=== PATIENT | female | born 1970 | race Caucasian/White ===

== ENCOUNTER 2016-07-14 12:32 | Emergency (ER) | payer OTHER ==
--- NOTE | 2016-07-14 12:39 | PDOC ---
History of Present Illness - General Chief Complaint: Injury Stated Complaint: RIGHT WRIST PAIN Time Seen by Provider: 07/14/16 12:34 History Source: Patient, Old Records Exam Limitations: No Limitations - History of Present Illness Initial Comments: 07/14/16 12:39 46-year-old right-hand dominant female with history of hypothyroid disease works as a tech in the emergency department and hurt her right wrist while at work today. The patient states that while she was complaining to retrieve a patient from a the street she was pushing a stretcher and felt a slight pain when she rounded the corner. There was no direct, to the area. The patient felt the pain immediately after the event and experiences pain with movement of her wrist. The patient is unable to characterize the pain but says that it is exacerbated with movement of the wrist. Past History - Past Medical History Allergies/Adverse Reactions: Allergies Allergy/AdvReac Type Severity Reaction Status Date / Time pantoprazole sodium AdvReac Mild Swelling Verified 07/14/16 12:34 [From Protonix] Home Medications: Ambulatory Orders Levothyroxine [Synthroid -] 50 mcg PO DAILY 07/14/16 Asthma: No Diabetes: No HTN: No - Immunization History Immunization Up to Date: Yes - Psycho/Social/Smoking Cessation Hx Anxiety: No Suicidal Ideation: No Smoking Status: No Smoking History: Never smoked Number of Cigarettes Smoked Daily: 0 Hx Alcohol Use: Yes Drug/Substance Use Hx: No Substance Use Type: None Review of Systems - Review of Systems Able to Perform ROS?: Yes Is the patient limited Bur[place]ian proficient: No Constitutional: No: Symptoms Reported HEENTM: No: Symptoms Reported Respiratory: No: Symptoms reported Cardiac (ROS): No: Symptoms Reported ABD/GI: No: Symptoms Reported : No: Symptoms Reported Musculoskeletal: Yes: See HPI Integumentary: No: Symptoms Reported Neurological: No: Symptoms reported *Physical Exam - Physical Exam Comments: 07/14/16 12:41 GENERAL: Well developed, well nourished. Awake and alert. No acute distress. HEENT: Normocephalic, atraumatic. PERRLA, EOMI. No conjunctival pallor. Sclera are non- icteric. Moist mucous membranes. Oropharynx is clear. MUSCULOSKELETAL Normal range of motion at all joints. No bony deformities or tenderness. No CVA tenderness. EXTREMITIES: Right hand and wrist: there is tenderness to palpation of the radial aspect of the wrist. There is full ROM of the wrist joint. There is no STS or ecchymosis. Sensory and motor exams are intact. The radial pulse is palpable and is +2. SKIN: Warm and dry. Normal capillary refill. No rashes. No jaundice. NEUROLOGICAL: Alert, awake, appropriate. Cranial nerves 2-12 intact. Grossly non-focal exam. PSYCHIATRIC: Cooperative. Good eye contact. Appropriate mood and affect. Medical Decision Making - Medical Decision Making 07/14/16 12:43 46-year-old female who is right-hand dominant presents the emergency department with right wrist pain after moving a heavy stretcher while at work today sustaining a sprain injury. Plan: 1. Vidal wrap 2. NSAIDs as needed for pain 3. Ice to the affected area 4. Activity as tolerated 5. Follow-up with PCP 6. Observe and reevaluate *DC/Admit/Observation/Transfer Diagnosis at time of Disposition: Right wrist sprain - Discharge Dispostion Disposition: HOME Condition at time of disposition: Stable Admit: No - Referrals Referrals: Lyn Jhaveri MD [Primary Care Provider] - - Patient Instructions Additional Instructions: You have sustained a sprain to your right wrist. Please use an VIDAL wrap for support of the joint. Apply ice to the joint every 20 minutes for the next 24 hours. You may take tylenol or motrin as needed for pain. Follow-up with you rPCP as needed. Return to the ED if your symptoms persist, worsen or new symptoms arise.
[2016-07-14 12:48] VITALS: BP 122/73; PULSE 55; TEMP 97.9; BMI 58.1
[2016-07-14] MEDS ORDERED: IBUPROFEN 400 MG TABLET (FP) PO ONE ×2 (12:52→12:53)
== END 2016-07-14 12:58 | disposition home or self-care (01) ==
LOC: FER 12:32
DX: M25.531 Pain in right wrist (principal); S63.501A Unspecified sprain of right wrist, initial encounter; X58.XXXA Exposure to other specified factors, initial encounter; Y93.89 Activity, other specified; Y92.232 Corridor of hospital as the place of occurrence of the external cause; Y99.0 Civilian activity done for income or pay; E03.9 Hypothyroidism, unspecified
CPT/HCPCS: 99282-25

== ENCOUNTER 2017-01-03 12:25 | Emergency (ER) | payer OTHER ==
[2017-01-03 12:33] VITALS: BP 127/80; PULSE 62; TEMP 98.4; BMI 28.3
[2017-01-03] MEDS ORDERED: KETOROLAC TROMETHAMINE 30 MG/1 ML VIAL ONE (12:33)
[2017-01-03] MEDS ORDERED: KETOROLAC TROMETHAMINE 30 MG/1 ML VIAL IVPUSH ONE (12:41)
[2017-01-03] MEDS ORDERED: METOCLOPRAMIDE HCL INJECTION 10 MG/2 ML VIAL IVPB ONE (12:41)
[2017-01-03] MEDS ORDERED: SODIUM CHLORIDE 0.9% 1000 ML INFUS.BAG IV ONE (12:41)
--- NOTE | 2017-01-03 12:48 | PDOC ---
History of Present Illness - General Chief Complaint: Headache Stated Complaint: HEADACHE Time Seen by Provider: 01/03/17 12:37 - History of Present Illness Initial Comments: 01/03/17 13:00 Patient is a 46 year old female with a history of Hypothyroidism who presents with a complaint of headache. She reports that yesterday, she was working and did not get to eat much throughout the day. She states that she drank wine which she normal doesn't do yesterday evening and woke up extremely nauseated and a pounding headache. She states that she vomited after attempting to eat and her headache has been getting progressively worse prompting her visit to the ED today. The patient's is present with her and states that she fell back while sitting in a chair yesterday evening and hit her head on a wall which the patient does not recall. She denies any fevers, chills, chest pain, SOB, abdominal pain, or changes with bowel movements or urination. Past History - Past Medical History Allergies/Adverse Reactions: Allergies Allergy/AdvReac Type Severity Reaction Status Date / Time pantoprazole sodium AdvReac Mild Swelling Verified 01/03/17 12:28 [From Protonix] Home Medications: Ambulatory Orders Levothyroxine [Synthroid -] 50 mcg PO DAILY 07/14/16 Ibuprofen [Motrin -] 600 mg PO TID PRN #60 tablet 01/03/17 Ondansetron [Ondansetron Odt] 8 mg PO TID PRN #15 tab.rapdis 01/03/17 Asthma: No Diabetes: No GI Disorders: Yes (H/O UPPER GI BLEED) HTN: No Thyroid Disease: Yes - Immunization History Immunization Up to Date: Yes - Psycho/Social/Smoking Cessation Hx Anxiety: No Suicidal Ideation: No Smoking Status: No Smoking History: Never smoked Number of Cigarettes Smoked Daily: 0 Information on smoking cessation initiated: No Hx Alcohol Use: Yes Drug/Substance Use Hx: No Substance Use Type: None Review of Systems - Review of Systems Constitutional: No: Chills, Fever HEENTM: No: Blurred Vision, Tearing, Recent change in vision Respiratory: No: Cough, Shortness of Breath Cardiac (ROS): No: Chest Pain, Palpitations ABD/GI: Yes: Nausea, Poor Fluid Intake, Vomiting. No: Constipated, Diarrhea : No: Dysuria Integumentary: No: Rash Neurological: Yes: Headache. No: Numbness, Tingling, Weakness *Physical Exam - Vital Signs Last Vital Signs Temp Pulse Resp BP Pulse Ox 98.4 F 62 18 127/80 100 01/03/17 12:25 01/03/17 12:25 01/03/17 12:25 01/03/17 12:25 01/03/17 12:25 - Physical Exam Comments: 01/03/17 13:14 General Appearance: Nourished. No Apparent Distress HEENT: EOMI, BROOKE. No Photophobia, Pharyngeal Erythema, Tonsillar Exudate, Tonsillar Erythema Respiratory/Chest: Lungs Clear, Normal Breath Sounds. No Crackles, Rales, Rhonchi, Wheezing Cardiovascular: Regular Rhythm, Regular Rate. No Murmur, Gallop/S3, Gallop/S4 Gastrointestinal/Abdominal: Normal Bowel Sounds, Soft. No Guarding, Rebound, Tenderness Extremity: Normal Capillary Refill Integumentary: Normal Color, Dry, Warm Neurologic: bottom turning lathe tender II-XII NML intact, Fully Oriented, Alert, Normal Mood/Affect, Normal Response, Motor Strength 10/02 ED Treatment Course - LABORATORY CBC & Chemistry Diagram: 01/03/17 12:56 01/03/17 12:56 - Medications Given in the ED: ED Medications Discontinued Medications Generic Name Dose Route Start Last Admin Trade Name Geraldine PRN Reason Stop Dose Admin Ketorolac Tromethamine 30 mg 01/03/17 12:41 01/03/17 12:40 Toradol Injection - IVPUSH 01/03/17 12:42 30 mg ONCE ONE Administration Metoclopramide HCl 10 mg 01/03/17 12:41 01/03/17 12:45 Reglan Injection - IVPB 01/03/17 12:42 10 mg ONCE ONE Administration Sodium Chloride 1,000 ml 01/03/17 12:41 01/03/17 12:40 Normal Saline - IV 01/03/17 12:42 1,000 ml ONCE ONE Administration Medical Decision Making - Medical Decision Making 01/03/17 13:15 Patient is a 46 year old female who presents with nausea, vomiting and headache. Differential includes but is not limited to: Dehydration, Migraine, Metabolic abnormality, Intracranial bleed. Given her history of alcohol consumption as well as nausea, it is likely her headache is due to dehydration. We will give the patient a 1L fluid bolus and reglan to treat her nausea and reassess. Given her history and description of mild head trauma, intracranial bleed is on the differential, however less likely given the mechanism and her physical exam. If the patient has continued symptoms despite treatment we will consider a head CT. We will also send a cbc, and cmp to evaluate for any metabolic component to her symptoms. 01/03/17 19:33 Patient improved with treatment. Lab work up is negative. We discussed the results with the patient and feel comfortable discharging the patient home. The patient is agreeable with the plan. *DC/Admit/Observation/Transfer Diagnosis at time of Disposition: Migraine - Discharge Dispostion Disposition: HOME Condition at time of disposition: Improved - Prescriptions Prescriptions: Ibuprofen [Motrin -] 600 mg PO TID PRN #60 tablet PRN Reason: Pain Ondansetron [Ondansetron Odt] 8 mg PO TID PRN #15 tab.rapdis PRN Reason: Nausea - Referrals Referrals: Lyn Jhaveri MD [Primary Care Provider] - - Patient Instructions Printed Discharge Instructions: Migraine Headaches (Alternative Therapy), Migraine -- Adult Additional Instructions: you can take ibuprofen 600 mg every 8 hours as needed for pain. take with food. return for any weakness, nausea or vomiting or any concerns. you should drink plenty of fluids. follow up with your regular doctor as needed., call to schedule. - Attestations Physician Attestion: 01/03/17 19:34 I, Dr. Eugene Oro, attest that this document has been prepared under my direction and personally reviewed by me in its entirety. I further attest, that it accurately reflects all work, treatment, procedures and medical decision -making performed by me.
[2017-01-03 13:07] LABS: BASOPHIL 1.2 % (0-2.0); EOSINOPHIL 1.4 % (0-4.5); MCHC 33.6 g/dl (32.0-36.0); MEAN CELL VOLUME 89.3 fl (80-96); MEAN PLT VOLUME 7.4 fl (7.5-11.1); NEUTROPHILS 78.9 % (42.8-82.8); PLATELET COUNT 341 K/MM3 (134-434); RDW 12.7 % (11.6-15.6); WHITE BLOOD COUNT 7.7 K/mm3 (4.0-10.8)
[2017-01-03 13:20] LABS: ALBUMIN 4.3 g/dl (3.5-5.0); ALK PHOS 84 U/L (32-92); ANION GAP 9 (8-16); BILIRUBIN,TOTAL 0.8 mg/dl (0.2-1.0); CALCIUM 9.2 mg/dl (8.4-10.2); CO2 25 mmol/L (22-28); CREATININE 0.8 mg/dl (0.6-1.3); GLUCOSE,RANDOM 109 mg/dl (74-106); SGOT/AST 49 U/L (10-42); SGPT/ALT 41 U/L (10-40); TOT PROT 7.2 g/dl (6.4-8.3)
--- NOTE | 2017-01-03 13:28 | PDOC ---
Attending Attestation - Resident Resident Name: Eugene Oro - ED Attending Attestation I have performed the following: I have examined & evaluated the patient, The case was reviewed & discussed with the resident, I agree w/resident's findings & plan, Exceptions are as noted - HPI HPI: 01/03/17 13:24 46 yo F with h/o hypothyroid, prior migraines, here today with headache and nausea. pt states was drinking wine night prior, did have fall from a chair, when tried to sit down, chair fell backwards. pt states kinsey is similar to prior kinsey. no f/c no other trauma. did not take any medications prior to arrival. no focal weakness. no confusion. no neck or back pain. - Physicial Exam PE: 01/03/17 13:27 awake alert NAD. neck no cervical spine ttp, no head trauma no scalp ttp. no eccymosis or hematoma. lungs clear bilaterally. heart RRR no mrg. abd soft NT ND. nuero GCs 15, 5/5 muscle strength throught CN II - XII intact. skin warm and dry no rash. - Medical Decision Making 01/03/17 13:28 46 yo F with headache. likley due to dehydration, ro anemia, electrlyte disturbance. ivf, reglan and pain control. reassess. 01/03/17 13:58 pt states feeling much better after two liters, will dc to home. labs reviewed and normal.
[2017-01-03] MEDS ORDERED: ACETAMINOPHEN 325 MG TABLET (FP) PO ONE (13:29)
[2017-01-03] MEDS ORDERED: ACETAMINOPHEN 325 MG TABLET (FP) ONE ×2 (13:29→13:30)
[2017-01-03] MEDS ORDERED: SODIUM CHLORIDE 0.9% 500 ML INFUS.BAG IV ONE (13:30)
== END 2017-01-03 14:00 | disposition home or self-care (01) ==
LOC: FER 12:25
PROC: 3E0333Z Introduction of Anti-inflammatory into Peripheral Vein, Percutaneous Approach (ICD-10-PCS; principal; 2017-01-03)
PROC: 3E033GC Introduction of Other Therapeutic Substance into Peripheral Vein, Percutaneous Approach (ICD-10-PCS; 2017-01-03)
PROC: 3E0337Z Introduction of Electrolytic and Water Balance Substance into Peripheral Vein, Percutaneous Approach (ICD-10-PCS; 2017-01-03)
DX: G43.909 Migraine, unspecified, not intractable, without status migrainosus (principal); E03.9 Hypothyroidism, unspecified
CPT/HCPCS: 36415; 80053; 85025; 99284-25

== ENCOUNTER 2017-02-03 12:35 | Emergency (ER) | payer OTHER ==
[2017-02-03 12:42] VITALS: BP 125/87; PULSE 58; TEMP 98.1; BMI 28.3
[2017-02-03 12:52] LABS: URINE APPEARANCE Clear; URINE BILIRUBIN Negative (NEGATIVE); URINE GLUCOSE (UA) Negative (NEGATIVE); URINE KETONE Negative (NEGATIVE); URINE NITRITE Negative (NEGATIVE); URINE PROTEIN Trace (NEGATIVE); URINE UROBILINOGEN 0.2 (0.2-1.0)
[2017-02-03 12:53] LABS: URINE BLOOD 3+ (NEGATIVE); URINE COLOR YELLOW; URINE LEUK ESTERASE 2+ (NEGATIVE)
[2017-02-03 13:08] LABS: URINE BACTERIA MODERATE /hpf (NEGATIVE); URINE HYALINE CAST 0-3 /lpf
[2017-02-03] MEDS ORDERED: SODIUM CHLORIDE 1,000 ML IV ONE (13:13)
[2017-02-03] MEDS ORDERED: PHENAZOPYRIDINE HCL 100 MG TABLET (FP) PO ONE (13:13)
[2017-02-03] MEDS ORDERED: LEVOFLOXACIN 750 MG IVPB 150 ML IVPB ONE ×2 (13:13→13:15)
[2017-02-03 13:15] LABS: BASOPHIL 0.6 % (0-2.0); EOSINOPHIL 2.9 % (0-4.5); MCH 29.9 pg (25.7-33.7); MCHC 33.9 g/dl (32.0-36.0); MEAN PLT VOLUME 6.9 fl (7.5-11.1); NEUTROPHILS 76.4 % (42.8-82.8); PLATELET COUNT 332 K/MM3 (134-434); RDW 12.2 % (11.6-15.6); WHITE BLOOD COUNT 9.6 K/mm3 (4.0-10.8)
[2017-02-03] MEDS ORDERED: PHENAZOPYRIDINE HCL 100 MG TABLET (FP) ONE (13:15)
--- NOTE | 2017-02-03 13:28 | PDOC ---
History of Present Illness - General Chief Complaint: Urinary Problem Stated Complaint: urinary s/s Time Seen by Provider: 02/03/17 12:44 History Source: Patient Exam Limitations: No Limitations - History of Present Illness Travel History: No Initial Comments: 02/03/17 13:11 47y F hx of hypothyroidism presents with abdominal pain. pt was dx with clinical uti approx 10 days ago, completed a course of kelfex. pt states her dysuria had improved after day 2 of abx, but last (Approx 6 days ago), the sypmtoms started again and she started to have b/l flank pain and discomfort starting approx 2 days ago. pt endorses mild nausea, denies any fever /chills Past History - Past Medical History Allergies/Adverse Reactions: Allergies Allergy/AdvReac Type Severity Reaction Status Date / Time pantoprazole sodium AdvReac Mild Swelling Verified 02/03/17 12:36 [From Protonix] Home Medications: Ambulatory Orders Levothyroxine [Synthroid -] 50 mcg PO DAILY 07/14/16 Levofloxacin [Levaquin] 750 mg PO DAILY #6 tab 02/03/17 Phenazopyridine HCl [Pyridium] 100 mg PO BID #2 tablet 02/03/17 Asthma: No Diabetes: No GI Disorders: Yes (H/O UPPER GI BLEED) HTN: No Thyroid Disease: Yes - Immunization History Immunization Up to Date: Yes - Psycho/Social/Smoking Cessation Hx Anxiety: No Suicidal Ideation: No Smoking Status: No Smoking History: Never smoked Number of Cigarettes Smoked Daily: 0 Hx Alcohol Use: No Drug/Substance Use Hx: No Substance Use Type: None Review of Systems - Review of Systems Able to Perform ROS?: Yes Comments:: Constitutional - no reported Fever, Chills, HEENT: no reported vision changes, sore throat Respiratory: no reported cough, sob, hemoptysis Cardiac: no reported chest pain, palpitations, light headedness, leg swelling Abd/GI: +abd pain, nausea, flank pain no reported vomiting, blood per rectum, melena, diarrhea : no reported dysuria, frequency, discharge Musculskelatal - no reported back pain, joint swelling skin - no reported bruising, erythema, rash neurological: no reported headache, numbness, focal weakness, tingling, ataxia, hematologic: no reported anemia, easy bruising, easy bleeding *Physical Exam - Vital Signs Last Vital Signs Temp Pulse Resp BP Pulse Ox 98.1 F 58 L 14 125/87 100 02/03/17 12:36 02/03/17 12:36 02/03/17 12:36 02/03/17 12:36 02/03/17 12:36 - Physical Exam Comments: GENERAL: The patient is awake, alert, and fully oriented, Nontoxic - in no acute distress. HEAD: Normocephalic, atraumatic. EYES: extraocular movements intact, sclera anicteric, conjunctiva clear. ENT: Normal voice, Moist mucous membranes. NECK: Normal range of motion, supple LUNGS: Breath sounds equal, clear to auscultation bilaterally. No wheezes, no rhonchi, no rales. HEART: Regular rate and rhythm, normal S1 and S2 without murmur, rub or gallop. ABDOMEN: R cva tenderness, no rebound/guarding, no focal abdominal tenderness EXTREMITIES: Normal range of motion, no edema. No clubbing or cyanosis. No cords, erythema, or tenderness. NEUROLOGICAL: No facial assymetry, Normal speech, moving all 4 extremities spontaneously and symmetrically PSYCH: Normal mood, normal affect. SKIN: Warm, Dry, normal turgor, ED Treatment Course - LABORATORY CBC & Chemistry Diagram: 02/03/17 13:09 02/03/17 13:11 - ADDITIONAL ORDERS Additional order review: Laboratory Results 02/03/17 12:41 Urine Color Yellow Urine Appearance Clear Urine pH 7.0 Ur Specific Anderson 1.010 Urine Protein Trace Urine Glucose (UA) Negative Urine Ketones Negative Urine Blood 3+ H Urine Nitrite Negative Urine Bilirubin Negative Urine Urobilinogen 0.2 Ur Leukocyte Esterase 2+ H Urine RBC 5-10 Urine WBC 5-10 Ur Epithelial Cells Few Urine Bacteria Moderate Hyaline Casts 0-3 Medical Decision Making - Medical Decision Making 02/03/17 13:44 suspect UTI and possible pyelo labs reviewed pt given fluids/levaquin/pyridium no leukocytosis and cmp wnl ua c/w UTI pt still with intermitten tpain - will obtain CT to r/o kidney stone w/ UTI will give pt toradol 02/03/17 14:[address] noted for thickening of bladder wall no stones noted cw cystitis, possible early pyelo will treat pt with levaquin due to +cva tenderness will have pt fu with PMD will give short course of pyridium I discussed the physical exam findings, ancillary test results and final diagnoses with the patient. I answered all of the patient's questions. The patient was satisfied with the care received and felt comfortable with the discharge plan and treatment plan. The patient will call their primary care physician within 24 hours to arrange follow-up and will return to the Emergency Department with any new, persistent or worsening symptoms. *DC/Admit/Observation/Transfer Diagnosis at time of Disposition: Cystitis - Discharge Dispostion Disposition: HOME Condition at time of disposition: Improved Admit: No - Prescriptions Prescriptions: Levofloxacin [Levaquin] 750 mg PO DAILY #6 tab Phenazopyridine HCl [Pyridium] 100 mg PO BID #2 tablet - Referrals Referrals: Lyn Jhaveri MD [Staff Physician] - - Patient Instructions Printed Discharge Instructions: DI for Acute Cystitis Additional Instructions: Return to the emergency department immediately with ANY new, persistent or worsening symptoms including worsening abdominal pain, fevers, inability to tolerate oral intake, chest pain, shortness of breath or any other concerns. The pyridum may turn your urine orange,which is normal. Your sypmtoms should improve within about 2 days, if your sypmtoms are still persistent return to the Emergency Department or follow up with Dr. Humphries. You MUST call and follow up with your doctor in 2-3 days. Your emergency department visit is not complete without a followup with your doctor for reevaluation. Please make sure your doctor reviews the results of your emergency evaluation. Print Language: AMERICAN - Post Discharge Activity Work/School Note: Back to Work
[2017-02-03 13:33] LABS: ALK PHOS 100 U/L (32-92); ANION GAP 6 (8-16); BILIRUBIN,TOTAL 0.4 mg/dl (0.2-1.0); CALCIUM 8.9 mg/dl (8.4-10.2); CO2 27 mmol/L (22-28); CREATININE 0.8 mg/dl (0.6-1.3); GLUCOSE,RANDOM 104 mg/dl (74-106); SGOT/AST 34 U/L (10-42); SGPT/ALT 31 U/L (10-40); TOT PROT 7.2 g/dl (6.4-8.3)
[2017-02-03] MEDS ORDERED: KETOROLAC TROMETHAMINE 30 MG/1 ML VIAL ONE (13:44)
[2017-02-03] MEDS ORDERED: KETOROLAC TROMETHAMINE 30 MG/1 ML VIAL IVPUSH ONE (13:44)
== END 2017-02-03 14:56 | disposition home or self-care (01) ==
LOC: FER 12:35
PROC: 3E0333Z Introduction of Anti-inflammatory into Peripheral Vein, Percutaneous Approach (ICD-10-PCS; principal; 2017-02-03)
PROC: 3E03329 Introduction of Other Anti-infective into Peripheral Vein, Percutaneous Approach (ICD-10-PCS; 2017-02-03)
PROC: 3E0337Z Introduction of Electrolytic and Water Balance Substance into Peripheral Vein, Percutaneous Approach (ICD-10-PCS; 2017-02-03)
DX: N30.90 Cystitis, unspecified without hematuria (principal)
CPT/HCPCS: 36415; 74176; 80053; 81003; 81015; 85025; 87086; 87186; 99283-25

== ENCOUNTER 2019-07-11 14:57 | Emergency (ER) | payer OTHER ==
--- NOTE | 2019-07-11 15:17 | PDOC ---
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 no fall or trauma. has been taking tylenol/ibuprofen appropriately dosed, last dose of ibuprofen 600mg IRRIGATOR HEAD without effect. Review of Systems Constitutional: no fevers or chills. Abdomen: no abdominal pain Genitorurinary: no urinary retention or incontinence, no dysuria, urgency or frequency. no hematuria MUSCULOSKELETAL: No joint pain and swelling. No muscle pain/arthralgias. Back: +back pain SKIN: no redness or skin changes, no discharge, no rash. No wounds. Hematologic: no easy bruising/bleeding. NEUROLOGIC: No weakness, numbness or tingling. Allergic/Immunologic: no allergies All other systems reviewed and negative, or as documented in HPI. physical exam General: NAD, well appearing HEENT: NCAT, EOMI, PERRL Resp: no respiratory distress Abdomen: soft, no tenderness, nondistended Vascular: 2+ DP pulses symmetric and equal. Back: no midline tenderness, no stepoffs, FROM, +right paravertebral lumbar TTP MSK: notable for soft compartments, Cap refill <2 sec. Proximal and distal strength 5/5, film touch up inspector strength 5/5 - equal and symmetric. Plantar flexion and dorsiflexion 5/5. FROM. Sensation grossly intact to light touch. SILT. no laxity at knee jt. 2+ DP pulses bilaterally. Neuro: alert, no focal neurologic deficits Skin: color normal color, warm and well perfused. Cap refill <2 sec. 07/11/19 15:44 Past History - Past Medical History Allergies/Adverse Reactions: Allergies Allergy/AdvReac Type Severity Reaction Status Date / Time pantoprazole sodium Allergy Intermediate Swelling Verified 07/11/19 14:59 [From Protonix] Home Medications: Ambulatory Orders Levothyroxine [Synthroid -] 50 mcg PO DAILY 07/14/16 Cyclobenzaprine HCl [Flexeril 10 mg] 10 mg PO TID PRN #15 tablet 07/11/19 Lidocaine 5% Patch [Lidoderm Patch -] 1 patch TP DAILY #7 patch 07/11/19 Prednisone [Prednisone 50 MG TABLETS] 50 mg PO DAILY #5 tablet 07/11/19 Asthma: No Diabetes: No GI Disorders: Yes (H/O UPPER GI BLEED) HTN: No Thyroid Disease: Yes - Immunization History Immunization Up to Date: Yes - Psycho Social/Smoking Cessation Hx Smoking Status: No Smoking History: Never smoked Number of Cigarettes Smoked Daily: 0 Hx Alcohol Use: No Drug/Substance Use Hx: No Substance Use Type: None Medical Decision Making - Medical Decision Making 07/11/19 15:48 Vital Signs Temp Pulse Resp BP Pulse Ox 98.5 F 80 16 130/91 100 07/11/19 14:59 07/11/19 14:59 07/11/19 14:59 07/11/19 14:59 07/11/19 14:59 DDx back pain: back strain, lumbago, sciatica, radiculopathy, spinal stenosis. Muscle spasm. Lumbar radiculopathy. Clinically doubt based on exam and clinical history: cord compression or cauda equina, with low suspicion and NO red flag sx malignancy, weight loss, trauma, fevers, IVDU, lumbar/spinal procedures, bowel and bladder incontinence/retention , urinary sx, neurologic deficits or changes. no midline sx. paralumbar tenderness, given steroids, rx x 5 days. prn flexeril for spasms. analgesia, lido patch DC stable condition with PCP followup, return precautions. rest, light activity as tolerated, supportive care/measures. pt verbalized understanding of impression and plan. Discharge - Discharge Information Problems reviewed: Yes Clinical Impression/Diagnosis: Lumbar back pain Condition: Stable Disposition: HOME - Admission No - Additional Discharge Information Prescriptions: Cyclobenzaprine HCl [Flexeril 10 mg] 10 mg PO TID PRN #15 tablet PRN Reason: Muscle Spasms Lidocaine 5% Patch [Lidoderm Patch -] 1 patch TP DAILY #7 patch Prednisone [Prednisone 50 MG TABLETS] 50 mg PO DAILY #5 tablet - Follow up/Referral Referrals: Lyn Jhaveri MD [Primary Care Provider] - - Patient Discharge Instructions Patient Printed Discharge Instructions: DI for Low Back Pain, DI for Back Pain With Sciatica, Exercise May Reduce Risk of Low Back Pain Additional Instructions: You most likely have musculoskeletal strain of your lower back with radiculopathy Avoid heavy lifting or strenuous activity to minimize further injury This should heal over the next 3-5 days. RICE rest ice elevate the affected area Rest, Ice (20 minutes at a time, 3 times a day), Compression (HERMANN wrap or splint ), Elevation (above the heart). Apply ice to the area for 10 minutes every 2 hours for the first 2 days after the injury to reduce swelling. continue with range of motion exercises, as this will facilitate the healing process; avoid being bed bound and immobile. If you have any worsening of symptoms, including severe pain/swelling/redness/ numbness/changes in sensation/weakness/paralysis or any other concerns please return to the Emergency Department immediately. You were given a copy of the results from any tests performed today in the Emergency Department which have results available. Show these to your doctor(s). Some of the tests we sent may not have results yet so please call or have your doctor call the Emergency Department to follow up on all results. Please continue taking your home medications as directed. Do not use alcohol when taking any medication ( especially antibiotics, tylenol or other pain medication) unless you check with the doctor or pharmacist. -flexeril is a muscle relaxant, take three times a day as needed may cause sleepiness, do not drive or operate machinery or take with alcohol. -topical lidoderm patch to the area affected, 12 hours on and 12 hours off.. -May take ibuprofen 400-600mg and/or tylenol 650 to 975 mg every 6 hours as needed for mild to moderate pain, available over the counter. This does not require narcotics, as it will precipitate injuries and falls. - take prednisone x 5 days daily for the sciatica pain. this helps with inflammation. Please follow up with your primary doctor(s) within the next 1 week, but seek medical care sooner if your symptoms persist or worsen. Please call as soon as possible for an appointment. If you cannot follow up with your doctor please return to the Emergency Department for any urgent issues. Follow up with your primary care physician in 1 week if symptoms persist, or with orthopedics specialists if needed, referrals have been provided. - Post Discharge Activity Work/Back to School Note: Back to Work
[2019-07-11] MEDS ORDERED: LIDOCAINE 5% TOPICAL PATCH TP ONE (15:19)
[2019-07-11 15:20] VITALS: BP 130/91; PULSE 80; TEMP 98.5; BMI 28.3
[2019-07-11] MEDS ORDERED: LIDOCAINE 5% TOPICAL PATCH ONE (15:25)
== END 2019-07-11 15:43 | disposition home or self-care (01) ==
LOC: FER 14:57
DX: M54.5 Low back pain (principal); X58.XXXA Exposure to other specified factors, initial encounter; Y93.89 Activity, other specified; Y92.89 Other specified places as the place of occurrence of the external cause; Y99.0 Civilian activity done for income or pay; Z88.8 Allergy status to other drugs, medicaments and biological substances
CPT/HCPCS: 99283-25

== ENCOUNTER 2019-07-21 21:54 | Emergency (ER) | payer OTHER ==
[2019-07-21 22:02] VITALS: BP 144/96; PULSE 67; TEMP 98.4
[2019-07-21 22:03] VITALS: BMI 28.3
[2019-07-21] MEDS ORDERED: CEFTRIAXONE 1,000 MG in DEXTROSE 5%-WATER - 50 ML IVPB ONE (22:10)
[2019-07-21] MEDS ORDERED: PHENAZOPYRIDINE HCL 100 MG TABLET (FP) PO ONE (22:11)
[2019-07-21] MEDS ORDERED: PHENAZOPYRIDINE HCL 100 MG TABLET (FP) ONE (22:17)
[2019-07-21] MEDS ORDERED: cefTRIAXone SODIUM 1 GM VIAL ONE (22:17)
[2019-07-21] MEDS ORDERED: KETOROLAC TROMETHAMINE 30 MG/1 ML VIAL IVPUSH ONE (22:30)
[2019-07-21] MEDS ORDERED: KETOROLAC TROMETHAMINE 30 MG/1 ML VIAL ONE (22:32)
[2019-07-21 22:38] LABS: BASO % 1.4 % (0-2.0); EOS % 1.3 % (0-4.5); HEMATOCRIT 41.4 % (32.4-45.2); HEMOGLOBIN 13.7 GM/dl (10.7-15.3); LYMPH % 11.5 % (8-40); MCH 29.9 pg (25.7-33.7); MEAN CELL VOLUME 90.5 fl (80-96); MEAN PLT VOLUME 7.6 fl (7.5-11.1); MONO % 4.4 % (3.8-10.2); NEUT % 81.4 % (42.8-82.8); PLATELET COUNT 306 K/MM3 (134-434); RBC 4.58 M/mm3 (3.60-5.2); RDW 11.8 % (11.6-15.6); WHITE BLOOD COUNT 13.8 K/mm3 (4.0-10.8)
[2019-07-21 22:51] LABS: ALBUMIN 3.8 g/dl (3.4-5.0); BILIRUBIN,TOTAL 0.6 mg/dl (0.2-1); CALCIUM 8.7 mg/dl (8.5-10); CREATININE 0.9 mg/dl (0.55-1.3); POTASSIUM 3.6 mmol/L (3.5-5.1); TOT PROT 6.8 g/dl (6.4-8.2)
--- NOTE | 2019-07-21 22:59 | PDOC ---
Documentation entered by Manisha Munoz SCRIBE, acting as scribe for Roland Smyth MD. Roland Smyth MD: This documentation has been prepared by the Alexander christensen Nirvannie, SCRIBE, under my direction and personally reviewed by me in its entirety. I confirm that the documentation accurately reflects all work, treatment, procedures, and medical decision making performed by me. History of Present Illness - General Chief Complaint: Vaginal Bleeding Stated Complaint: VAG BLEEDING/PAIN Time Seen by Provider: 07/21/19 22:04 History Source: Patient Exam Limitations: No Limitations - History of Present Illness Initial Comments: 07/21/19 22:16 HPI: The patient is a 49 year old female, with a significant past medical history of hypothyroidism and upper GI bleed, who presents to the emergency department with 2 days of dysuria with new onset chill and hematuria. As per patient, she has been experiencing dysuria since yesterday and today she began to experience chills. She notes at approximately 7:30 this evening (2.5 prior to her arrival) she had an onset of hematuria with small clots and bilateral lower back pain, prompting her arrival to the ED. She denies any history of kidney stones. She denies any vaginal bleeding. She denies recent headaches or dizziness. She denies recent nausea, vomit, diarrhea or constipation. She denies recent chest pain or shortness of breath. PAST MEDICAL HISTORY: Hypothyroidism and Upper GI bleed. PAST SURGICAL HISTORY: no significant history FAMILY HISTORY: no pertinent history SOCIAL HISTORY: Pt lives with family and is employed. MEDICATIONS: reviewed ALLERGIES: As per nursing notes ROS: General: No fevers or chills, no weakness, no weight loss HEENT: No change in vision. No sore throat,. No ear pain CardioVascular: No chest pain or shortness of breath Respiratory:No cough, or wheezing. Gastrointestinal: no nausea, vomiting, diarrhea or constipation, No rectal bleeding Genitourinary: +Dysuria. Hematuria Musculoskeletal: No joint or muscle pain or swelling Neurologic: No headache, vertigo, dizziness or loss of consciousness Psychiatric: nor depression Skin: No rashes or easy bruising Endocrine: no increased thirst or abnormal weight change Allergic: no skin or latex allergy All other systems reviewed and normal Physical Exam: GENERAL: The patient is awake, alert, and fully oriented, in no acute distress. HEAD: Normal with no signs of trauma. EYES: Pupils equal, round and reactive to light, extraocular movements intact, sclera anicteric, conjunctiva clear. ABDOMEN: +Mild suprapubic discomfort. BACK: +Mild low back discomfort. No CVA or flank tenderness. EXTREMITIES: Normal range of motion, no edema. NEUROLOGICAL: Normal speech, normal gait. PSYCH: Normal mood, normal affect. SKIN: Warm, Dry, normal turgor, no rashes or lesions noted. 07/21/19 22:57 Assessment and plan: This is a 49-year-old female who comes in complaining of frequency, dysuria and hematuria. Patient is also complaining of some fever chills and low back pain. Patient denies any pain in the area of the kidneys. Patient work-up initiated including urinalysis, urine culture blood cultures CBC and comp. Patient given a dose of IV ceftriaxone and pain medication. 07/21/19 23:20 Patient's white count is mildly elevated but otherwise her blood work is unremarkable. Prescription sent to patient's pharmacy for Cipro twice daily for 10 days. Patient given note for no work until Wednesday Past History - Past Medical History Allergies/Adverse Reactions: Allergies Allergy/AdvReac Type Severity Reaction Status Date / Time pantoprazole sodium Allergy Intermediate Swelling Verified 07/11/19 14:59 [From Protonix] Home Medications: Ambulatory Orders Levothyroxine [Synthroid -] 50 mcg PO DAILY 07/14/16 Ciprofloxacin HCl [Cipro] 500 mg PO BID #20 tablet 07/21/19 Phenazopyridine HCl [Pyridium] 200 mg PO TID #6 tablet 07/21/19 Asthma: No COPD: No Diabetes: No GI Disorders: Yes (H/O UPPER GI BLEED) HTN: No Thyroid Disease: Yes - Reproductive History Tubal Ligation: No - Immunization History Immunization Up to Date: Yes - Psycho Social/Smoking Cessation Hx Smoking Status: No Smoking History: Never smoked Number of Cigarettes Smoked Daily: 0 Hx Alcohol Use: No Drug/Substance Use Hx: No Substance Use Type: None *Physical Exam - Vital Signs Last Vital Signs Temp Pulse Resp BP Pulse Ox 98.4 F 67 16 144/96 100 07/21/19 21:57 07/21/19 21:57 07/21/19 21:57 07/21/19 21:57 07/21/19 21:57 ED Treatment Course - LABORATORY CBC & Chemistry Diagram: 07/21/19 22:20 07/21/19 22:20 - ADDITIONAL ORDERS Additional order review: Laboratory Results 07/21/19 21:50 Urine Color Dark Urine Appearance Cloudy Urine pH 6.5 Urine Protein 3+ H Urine Glucose (UA) Negative Urine Ketones Negative Urine Blood 3+ H Urine Nitrite Positive H Urine Bilirubin 1+ H Urine Urobilinogen 1.0 Ur Leukocyte Esterase 1+ Urine RBC >100 Urine WBC >100 Urine Bacteria Moderate - Medications Given in the ED: ED Medications Discontinued Medications Generic Name Dose Route Start Last Admin Trade Name Shemarq PRN Reason Stop Dose Admin Ceftriaxone Sodium 1,000 mg/ 50 mls @ 100 mls/hr 07/21/19 22:10 07/21/19 22: 31 Dextrose IVPB 07/21/19 22:39 100 mls/hr ONCE ONE Administration Ketorolac Tromethamine 30 mg 07/21/19 22:30 07/21/19 22:33 Toradol Injection - IVPUSH 07/21/19 22:31 30 mg ONCE ONE Administration Phenazopyridine HCl 200 mg 07/21/19 22:11 07/21/19 22:31 Pyridium - PO 07/21/19 22:12 200 mg ONCE ONE Administration Discharge - Discharge Information Problems reviewed: Yes Clinical Impression/Diagnosis: Pyelonephritis Condition: Stable Disposition: HOME - Admission No - Additional Discharge Information Prescriptions: Ciprofloxacin HCl [Cipro] 500 mg PO BID #20 tablet Phenazopyridine HCl [Pyridium] 200 mg PO TID #6 tablet - Follow up/Referral Referrals: Lyn Jhaveri MD [Primary Care Provider] - - Patient Discharge Instructions Additional Instructions: For the infection take ciprofloxacin 1 tablet twice a day for 10 days For fevers and chills take Tylenol or Motrin For the burning and frequency take Pyridium 1 tablet 3 times a day for 2 days by then the symptoms should have resolved if they have not resolved see your primary care doctor or come back to the ED Return to the emergency department immediately with ANY new, persistent or worsening symptoms. Continue any medications as previously prescribed by your physician. You should follow up with your primary doctor as soon as possible regarding today's emergency department visit. . Please make sure your doctor reviews the results of your emergency evaluation. Thank you for coming to the Emergency Department today for your care. It was a pleasure to see you today. Please note that your evaluation is INCOMPLETE until you follow-up with your doctor. - Post Discharge Activity Work/Back to School Note: Back to Work
== END 2019-07-21 23:39 | disposition home or self-care (01) ==
LOC: FER 21:54
PROC: 3E03329 Introduction of Other Anti-infective into Peripheral Vein, Percutaneous Approach (ICD-10-PCS; principal; 2019-07-21)
PROC: 3E0337Z Introduction of Electrolytic and Water Balance Substance into Peripheral Vein, Percutaneous Approach (ICD-10-PCS; 2019-07-21)
DX: N12 Tubulo-interstitial nephritis, not specified as acute or chronic (principal); E03.9 Hypothyroidism, unspecified
CPT/HCPCS: 36415; 80053; 81003; 81015; 85025; 87040; 87086; 87186; 99284-25

== ENCOUNTER 2021-09-15 13:41 | Emergency (ER) | payer OTHER ==
[2021-09-15] MEDS ORDERED: KETOROLAC TROMETHAMINE 30 MG/1 ML VIAL IVPUSH ONE (13:47)
[2021-09-15] MEDS ORDERED: KETOROLAC TROMETHAMINE 30 MG/1 ML VIAL ONE (13:56)
[2021-09-15 13:58] VITALS: BP 117/68; PULSE 58; TEMP 97.6; BMI 28.3
[2021-09-15 14:33] LABS: HEMATOCRIT 38.7 % (32.4-45.2); HEMOGLOBIN 13.3 G/dL (10.7-15.3); MCH 30.8 pg (25.7-33.7); MCHC 34.4 g/dl (32.0-36.0); MEAN CELL VOLUME 89.3 fl (80-96); MEAN PLT VOLUME 7.1 fl (7.5-11.1); PLATELET COUNT 298.6 10^3/uL (134-434); RBC 4.33 10^6/uL (3.60-5.2); RDW 13.6 % (11.6-15.6); WHITE BLOOD COUNT 5.7 10^3/uL (4.0-10.8)
[2021-09-15 14:44] LABS: ALBUMIN 3.9 g/dl (3.4-5.0); BILIRUBIN,TOTAL 0.7 mg/dl (0.2-1); CALCIUM 9.3 mg/dl (8.5-10); CREATININE 0.8 mg/dl (0.55-1.3); TOT PROT 6.8 g/dl (6.4-8.2)
[2021-09-15 15:50] LABS: EPITHELIAL CELLS FEW /hpf
[2021-09-15 17:53] LABS: ANISOCYTOSIS RARE
[2021-09-15 17:54] LABS: PLATELET ESTIMATE ADEQUATE
== END 2021-09-15 16:17 | disposition home or self-care (01) ==
LOC: FER 13:41
PROC: 3E033GC Introduction of Other Therapeutic Substance into Peripheral Vein, Percutaneous Approach (ICD-10-PCS; principal; 2021-09-15)
DX: N20.0 Calculus of kidney (principal)
CPT/HCPCS: 36415; 74177-TC; 80053; 81003; 81015; 85027; 87086; 99285-25; Q9967

== ENCOUNTER 2022-10-28 11:41 | Emergency (ER) | payer OTHER ==
[2022-10-28] MEDS ORDERED: ACETAMINOPHEN 325 MG TABLET (FP) PO ONE (11:46)
[2022-10-28] MEDS ORDERED: LIDOCAINE 5% TOPICAL PATCH TP ONE (11:46)
[2022-10-28] MEDS ORDERED: ACETAMINOPHEN 325 MG TABLET (FP) ONE (11:50)
[2022-10-28] MEDS ORDERED: LIDOCAINE 5% TOPICAL PATCH ONE (11:55)
[2022-10-28 11:56] VITALS: BP 141/77; PULSE 66; RESP 16; TEMP 97.8; BMI 28.3
== END 2022-10-28 12:30 | disposition home or self-care (01) ==
LOC: FER 11:41
DX: R51.9 Headache, unspecified (principal); M54.2 Cervicalgia; M25.551 Pain in right hip; S13.9XXA Sprain of joints and ligaments of unspecified parts of neck, initial encounter; S09.90XA Unspecified injury of head, initial encounter; W01.190A Fall on same level from slipping, tripping and stumbling with subsequent striking against furniture, initial encounter
CPT/HCPCS: 70450-TC; 72125-TC; 99284-25

== ENCOUNTER 2024-03-16 13:32 | Emergency (ER) | payer OTHER ==
[2024-03-16 13:38] VITALS: BP 118/76; PULSE 50; RESP 18; TEMP 97.8; BMI 29.7
[2024-03-16] MEDS ORDERED: IBUPROFEN 600 MG TABLET (FP) PO ONE (14:05)
[2024-03-16] MEDS: IBUPROFEN 600 MG TABLET (FP) PO ONE (14:14)
== END 2024-03-16 15:05 | disposition home or self-care (01) ==
LOC: FER 13:32
PROC: 2W3DX1Z Immobilization of Left Lower Arm using Splint (ICD-10-PCS; principal; 2024-03-16)
DX: S69.92XA Unspecified injury of left wrist, hand and finger(s), initial encounter (principal); X50.9XXA Other and unspecified overexertion or strenuous movements or postures, initial encounter
CPT/HCPCS: 73110-TC-LT-FY; 73130-TC-LT-FY; 99283-25